=== PATIENT | female | born 1985 ===

== ENCOUNTER 2017-10-31 11:55 | Outpatient (CLI) | payer OTHER | END 2017-10-31 13:29 | disposition home or self-care (01) | LOC: SONOGRAMA 11:55 | DX: N84.0 Polyp of corpus uteri (principal) ==

== ENCOUNTER 2018-01-20 10:02 | Outpatient (CLI) | payer OTHER | END 2018-01-20 10:22 | disposition home or self-care (01) | LOC: SONOGRAMA 10:02 | DX: R22.2 Localized swelling, mass and lump, trunk (principal); E04.1 Nontoxic single thyroid nodule ==

== ENCOUNTER 2018-09-04 07:50 | Outpatient (CLI) | payer OTHER | END 2018-09-04 07:56 | disposition home or self-care (01) | LOC: SONOGRAMA 07:50 | DX: C73 Malignant neoplasm of thyroid gland (principal) ==